=== PATIENT | male | born 1940 | race Caucasian/White ===

== ENCOUNTER 2018-07-08 11:45 | Day surgery (SDC) | payer MEDICARE, BC, OTHER ==
[~2018-07-08] VITALS: Ht 185.4 cm; Wt 120.7 kg
[~2018-07-08 11:45] MED LIST: ALBIPROI INH; ASPI325 PO; ASPI81CH; ATOR40TA PO; CLOP75 PO; DICL75ER; DOCU100 PO; FLUSAL1005 INH; GLIP5; GUAPSEER PO; HYDGUAL120 PO; INSULANPEN SC; LEVFLO500 PO; LISI10; LOSA50 PO; MELO7.5 PO; METF500 PO; METF850; METO25 PO; PANT40 PO; RXSULTRIDS PO; SIMV10 PO; SULTRIDS PO; TERA5; TERA5 PO; TRAM50
--- NOTE | 2018-07-08 12:47 | NUR ---
Surgical site prepped with 2% Chlorhexidine cloth wipe. History, Chart, Medications and Allergies reviewed before start of procedure. Lungs clear T/O to Auscultation. Patient confirms NPO status and agrees with scheduled surgery. Pre-Op teaching done. Pt verbalizes understanding. Patient reports completing Chlorhexadine shower X2 prior to admission to hospital.
--- NOTE | 2018-07-08 15:27 | NUR ---
07/08/18 1527 Vinny Couch ATTEMPTED SPINAL.
--- NOTE | 2018-07-08 18:29 | NUR ---
1814 WAITING TO TRANSPORT PT NOTED ELEVATED BP W/INCREASED SHIVERING. PT DENIES PAIN BUT HAS "ACHINESS". MEDICATED W/FENT 50MCG/O2 PER NC@2L
--- NOTE | 2018-07-08 20:05 | NUR ---
SHIFT SUMMARY S/P L TKA, SURGICAL DRESSING, VIRGIL WRAP, POLAR NAGELA, SCDS, TEDS ON. DENIES PAIN AT THIS TIME. DENIES N&V, MARIUSZ PO. REPORT GIVEN TO AVELINO FLORES.
[2018-07-09 04:46] LABS: BASOPHILS ABSOLUTE AUTO 0.02 K/mm3 (0.00-0.23); BASOPHILS PERCENT AUTO 0 % (0-2); EOSINOPHILS ABSOLUTE AUTO 0.14 K/mm3 (0.00-0.68); EOSINOPHILS PERCENT AUTO 2 % (0-6); Hematocrit 33.6 % (37.0-53.0); Hemoglobin 10.9 g/dL (13.5-17.5); IMMATURE GRAN ABSOLUTE AUTO 0.01 K/mm3 (0.00-0.10); IMMATURE GRAN PERCENT AUTO 0 % (0-1); LYMPHOCYTES ABSOLUTE AUTO 1.24 K/mm3 (0.84-5.20); LYMPHOCYTES PERCENT AUTO 17 % (21-46); MONOCYTES ABSOLUTE AUTO 0.81 K/mm3 (0.16-1.47); MONOCYTES PERCENT AUTO 11 % (4-13); Mean Corpuscular HGB 32.6 pg (26.0-34.0); Mean Corpuscular HGB Conc 32.4 g/dL (31.5-36.5); Mean Platelet Volume 10.6 fL (9.1-12.4); NEUTROPHILS ABSOLUTE AUTO 5.23 K/mm3 (1.96-9.15); NEUTROPHILS PERCENT AUTO 70 % (41-73); Platelet Count 154 K/mm3 (150-400); RDW Standard Deviation 47.7 fL (35.1-46.3); Red Blood Cell Count 3.34 M/mm3 (4.30-5.90); White Blood Cell Count 7.45 K/mm3 (4.00-11.30)
[2018-07-09 04:52] LABS: Mean Corpuscular Volume 101 fL (80-100)
--- NOTE | 2018-07-09 05:02 | NUR ---
SHIFT SUMMARY: PT POD #1 FOR LEFT TOTAL KNEE. A&O X4, VS WNL. PT DENIES N/T, WIGGLES TOES. CAP REFILL WNL. PT REPORTS FULL SENSATION. PAIN MANAGED WITH TYLENOL, TORADOL AND OXY PER EMAR. PT REPORTS GOOD PAIN CONTROL. VIRGIL WRAP CDI WITH POLAR PACK IN PLACE. WBAT. VOIDING AND MARIUSZ PO. SALINE LOCKED.
[2018-07-09 05:08] LABS: Anion Gap 6 mmol/L (6-16); Blood Urea Nitrogen 20 mg/dL (8-24); Bun/Creatinine Ratio 18.5 (12.0-20.0); CO2, Blood 28 mmol/L (21-32); Calcium, Blood 8.1 mg/dL (8.5-10.1); Chloride, Blood 104 mmol/L (98-108); Creatinine, Blood 1.08 mg/dL (0.60-1.20); Glomerular Filtration Rate >60 (60-); Glucose, Blood 119 mg/dL (70-99); Magnesium, Blood 2.3 mg/dL (1.6-2.4); Potassium, Blood 4.3 mmol/L (3.5-5.5); Sodium, Blood 138 mmol/L (136-145)
[2018-07-09] MEDS ORDERED: OXYC5 PO (09:57)
--- NOTE | 2018-07-09 15:50 | NUR ---
DISCHARGE SUMMARY PT A&OX4, VSS, LEFT FLOOR VIA WC WITH RN TO GO HOME WITH FAMILY, WITH ALL PERSONAL POSSESSIONS INCLUDING DISCHARGE PACKET. DISCHARGE INSTRUCTIONS PROVIDED. PT REP UNDERSTANDING THOSE INSTRUCTIONS INCLUDING CHANGE DRESSINGS EVERY 3-5 DAYS, FU APPT 2 WKS, PAIN MANAGEMENT, PT FU APPTS, SHOWER OK/NO BATH/[id number]. IV DC'D.
== END 2018-07-09 15:24 | disposition home or self-care (01) ==
LOC: ORSCMMR 11:45 → ORD 14:00 → ORSCMMR 14:00 → SURS 17:19 → ORSCMMR 07-09 15:24
PROVIDERS: Orthopaedic Surgery
PROC: 8E0YXBZ Computer Assisted Procedure of Lower Extremity (ICD-10-PCS; principal; 2018-07-08 14:00)
PROC: 0SRD0J9 Replacement of Left Knee Joint with Synthetic Substitute, Cemented, Open Approach (ICD-10-PCS; principal; 2018-07-08 14:00)
DX: M17.12 Unilateral primary osteoarthritis, left knee (principal); I10 Essential (primary) hypertension; E11.9 Type 2 diabetes mellitus without complications; Z87.891 Personal history of nicotine dependence; E66.9 Obesity, unspecified; Z68.35 Body mass index [BMI] 35.0-35.9, adult; Z79.899 Other long term (current) drug therapy; Z79.4 Long term (current) use of insulin; Z86.718 Personal history of other venous thrombosis and embolism; Z79.01 Long term (current) use of anticoagulants
CPT/HCPCS: 36415; 73560-LT; 80048; 82947; 83735; 85025; 88300; 97110; 97116; 97162; 97530; C1713; C1776; J0171; J0735; J1815; J1885; J2250; J2370; J2405; J2704; J2765; J2795; J3010; J3370; J7120

== ENCOUNTER 2018-11-04 06:21 | Day surgery (SDC) | payer MEDICARE, BC, OTHER ==
[~2018-11-04] VITALS: Ht 185.4 cm; Wt 116.4 kg
[~2018-11-04 06:21] MED LIST changes: +OXYC5 PO
== END 2018-11-04 08:37 | disposition home or self-care (01) ==
LOC: ORSCSDS 06:21
PROVIDERS: Ophthalmology
PROC: 08RJ3JZ Replacement of Right Lens with Synthetic Substitute, Percutaneous Approach (ICD-10-PCS; principal; 2018-11-04 08:00)
DX: H25.11 Age-related nuclear cataract, right eye (principal); I10 Essential (primary) hypertension; E11.9 Type 2 diabetes mellitus without complications; Z79.899 Other long term (current) drug therapy; Z79.82 Long term (current) use of aspirin; Z87.891 Personal history of nicotine dependence; E66.9 Obesity, unspecified; Z68.33 Body mass index [BMI] 33.0-33.9, adult
CPT/HCPCS: 82947; J2001; J2250; J3010; J3301; J7120; V2632